=== PATIENT | male | born 1970 | race Caucasian/White ===

== ENCOUNTER → 2017-08-16 | Outpatient (CLI) | payer OTHER ==
[~2017-08-16] MED LIST: ANT PO; LORA-741 PO
--- NOTE | 2017-08-16 21:25 | DIAGNOSTIC IMAGING REPORT ---
MRI LUMBAR SPINE W/O CONTRAST CLINICAL HISTORY: Persistent low back pain TECHNIQUE: Sagittal and axial T1, T2 and STIR images were obtained. COMPARISON STUDY: No previous studies for comparison. OBSERVATIONS: There are areas of marrow replacement involving the T12 L1 L2 L4-L5 and upper sacrum. The findings are viewed as highly suspicious for metastatic disease. There is soft tissue filling the left T12-L1 neural foramen L1-2: There is soft tissue filling the left L1-2 neural foramen, suspicious for neoplasm L2-3: There is a mild circumferential disc bulge. There is no spinal or foraminal stenosis L3-4: No disc protrusions or extrusions. No evidence of spinal canal or neural foraminal compromise. There are soft tissue nodules within the left paraspinal musculature L4-5: No disc protrusions or extrusions. No evidence of spinal canal or neural foraminal compromise. L5-S1: No disc protrusions or extrusions. No evidence of spinal canal or neural foraminal compromise. There is soft tissue masses filling the sacral canal. There is destruction of the posterior margins of the S2 and S3 vertebra. IMPRESSION: 1. Multifocal areas of marrow replacement viewed as highly suspicious for metastatic disease 2. Soft tissue lesions involving the left T12-L1 and left L1-2 neural foramina, suspicious for neoplasm 3. Extensive soft tissue masses filling the sacral canal with destruction the posterior margins of the S2 and S3 vertebra, highly suspicious for neoplasm 4. Soft tissue nodules in the left paraspinal region at the L3-4 level, suspicious for neoplasm. Electronically signed by: Austin Stuart M.D. 08/16/2017 9:23 PM Dictated Date/Time: 08/16/2017 9:17 PM
== END | disposition home or self-care (01) ==
LOC: C.MRI 19:37
PROVIDERS: ATTEND Family Medicine
DX: M54.5 Low back pain (principal)